=== PATIENT | female | born 1965 | race Caucasian/White ===

== ENCOUNTER 2017-11-21 06:00 | Inpatient (IN) | payer MEDICAID ==
[~2017-11-21] VITALS: Ht 165.1 cm; Wt 100.0 kg
[2017-11-21] VITALS (19 sets, daily range): BP systolic 93–129; BP diastolic 50–78
[~2017-11-21 06:00] MED LIST: ACET-812 PO; BUPR1FIL3 SL; DULO-31 PO; LAMO200T2 PO; LEVO175T2 PO; LEVO750T21 PO; METR500T PO; ONDA4TAB9 PO
[2017-11-21] MEDS ORDERED: Cefazolin 2GM/100ML NS IVPB IV ONE (07:00)
[2017-11-21] MEDS ORDERED: VANCOMYCIN INJ 1000 MG in NORMAL SALINE 250ml IV.SOLN IV ONE (07:00)
[2017-11-21] MEDS ORDERED: tranexamic acid inj. 1,000 MG in normal saline 100ml IV soln 90 ML IV ONE ×2 (07:00→08:00)
[2017-11-21] MEDS ORDERED: ringers solution, lacted 1,000 ML IV SCH ×2 (07:00→11:08)
[2017-11-21] MEDS ORDERED: ketorolac trometh. 30mg/ml inj. ONE (07:19)
[2017-11-21] MEDS ORDERED: ROPIVAcaine 0.5% (5mg/ml) 30ml vial ONE ×2 (07:19→08:15)
[2017-11-21 07:40] LABS: BASOPHILS % (AUTO) 0.5 % (0-1); EOSINOPHILS # (AUTO) 0.2 X10'3 (0-0.9); EOSINOPHILS % (AUTO) 1.8 % (0-6); HEMATOCRIT 39.5 % (35.0-45.0); HEMOGLOBIN 13.2 g/dl (12.0-16.0); LYMPHOCYTES % (AUTO) 30.3 % (21-51); MEAN CORPUSCULAR HEMOGLOBIN 28.9 PG (27.0-31.0); MEAN CORPUSCULAR HGB CONC 33.4 % (33.0-36.5); MEAN CORPUSCULAR VOLUME 86.4 FL (78-98); MEAN PLATELET VOLUME 8.1 FL (7.4-10.4); MONOCYTES # (AUTO) 0.8 X10'3 (0-0.9); NEUTROPHILS # (AUTO) 5.9 X10'3 (1.8-7.7); NEUTROPHILS % (AUTO) 59.4 % (42-75); PLATELET COUNT 371 X10'3 (140-440); RED BLOOD COUNT 4.57 X10'6 (4.20-5.60); RED CELL DISTRIBUTION WIDTH 14.3 % (11.5-14.5); WHITE BLOOD COUNT 9.9 X10'3 (4.5-11.0)
[2017-11-21 07:44] LABS: ALANINE AMINOTRANSFERASE 20 U/L (12-78); ALBUMIN 3.4 G/DL (3.4-5.0); ALBUMIN/GLOBULIN RATIO 0.9 (1.1-1.5); ALKALINE PHOSPHATASE 90 IU/L (46-116); ANION GAP 11 (8-16); ASPARTATE AMINO TRANSFERASE 16 U/L (10-37); BILIRUBIN,TOTAL 0.2 MG/DL (0.1-1.0); BLOOD UREA NITROGEN 24 MG/DL (7-18); BUN/CREATININE RATIO 18.9 (6.6-38.0); CALCIUM 8.9 MG/DL (8.5-10.1); CHLORIDE 104 MMOL/L (99-107); CREATININE 1.27 MG/DL (0.40-0.90); GLUCOSE 100 MG/DL (70-104); POTASSIUM 3.1 MMOL/L (3.5-5.1); SODIUM 144 MMOL/L (135-145); TOTAL CARBON DIOXIDE 29.4 MMOL/L (24-32); TOTAL PROTEIN 7.3 G/DL (6.4-8.2); eGFR 44 ML/MIN
[2017-11-21] MEDS ORDERED: desflurane 240ml liquid inh. IH ONE (07:54)
[2017-11-21] MEDS ORDERED: midazolam 2 mg/2 ml injection ONE (08:04)
[2017-11-21] MEDS ORDERED: fentaNYL /PF 50mcg/ml 5ml ampule ONE (08:04)
[2017-11-21] MEDS ORDERED: BUPIVAcaine/PF 7.5mg/ml (0.75%) 10ml vial ONE (08:16)
[2017-11-21] MEDS ORDERED: cloNIDine hcl/PF 100mcg/ml inj ONE (08:18)
[2017-11-21] MEDS ORDERED: propofol inj 20 ML IV ONE (08:35)
[2017-11-21] MEDS ORDERED: rocuronium 10mg/ml inj IV ONE (08:35)
[2017-11-21] MEDS ORDERED: LIDOcaine 2% (20mg/ml) 5ml vial ONE (08:35)
[2017-11-21 08:56] LABS: C-REACTIVE PROTEIN 2.44 MG/DL (0.0-0.5)
[2017-11-21] MEDS ORDERED: tobramycin sulfate 1.2gm vial TP ONE (09:18)
[2017-11-21] MEDS ORDERED: 0.9 % SODIUM CHLORIDE 10 ML VIAL ONE ×2 (09:45)
[2017-11-21] MEDS ORDERED: dexamethasone sod phosphate 4mg/ml inj. ONE (09:45)
[2017-11-21 09:47] LABS: APPEARANCE,SYNOVIAL FLUID CLOUDY; COLOR,SYNOVIAL FLUID OTHER; SYN RBC 15025 /CU MM (0); SYN WBC 3000 /CU MM (0-200)
[2017-11-21] MEDS ORDERED: morphine 10mg/ml inj. ONE (10:02)
[2017-11-21] MEDS ORDERED: ondansetron/PF 4mg/2ml inj ONE (10:18)
[2017-11-21] MEDS ORDERED: bisacodyl 10mg suppository rectal RC PRN (10:55)
[2017-11-21] MEDS ORDERED: oxyCODONE IR 5mg (immed. release) tablet PO PRN (10:55)
[2017-11-21] MEDS ORDERED: ondansetron 4mg rapidly disintigrating tab PO PRN (10:55)
[2017-11-21] MEDS ORDERED: diphenhydrAMINE 25mg capsule PO PRN ×2 (10:55)
[2017-11-21] MEDS ORDERED: HYDROmorphone inj. 0.5 MG/0.5 ML DISP.SYRIN IV PRN ×2 (10:55)
[2017-11-21] MEDS ORDERED: magnesium hydroxide 30ml (MOM) UD suspension PO PRN (10:55)
[2017-11-21] MEDS ORDERED: acetaminophen 325mg tablet PO PRN (10:55)
[2017-11-21] MEDS ORDERED: vancomycin 1,000mg inj TP ONE (11:00)
[2017-11-21] MEDS ORDERED: meperidine/PF 25mg/ml syringe ONE (11:08)
[2017-11-21] MEDS ORDERED: HYDROmorphone 1 mg/ml syringe IV PRN ×2 (11:10)
[2017-11-21] MEDS ORDERED: morphine 4 MG/ML inj SYRINge IV PRN ×2 (11:10)
[2017-11-21] MEDS ORDERED: meperidine/PF 25mg/ml syringe IV PRN ×3 (11:10)
[2017-11-21] MEDS ORDERED: proCHLORperazine 10 MG/2 ml inj IV PRN (11:10)
[2017-11-21] MEDS ORDERED: acetaminophen 1,000mg/100ml IV 100 ML IV PRN (11:10)
[2017-11-21] MEDS ORDERED: ketorolac trometh. 30mg/ml inj. IV ONE (11:10)
[2017-11-21] MEDS ORDERED: ondansetron/PF 4mg/2ml inj IV PRN (11:10)
[2017-11-21] MEDS ORDERED: ALBU18HF2 INH (11:35)
[2017-11-21] MEDS ORDERED: FAMO20TA8 PO (11:35)
[2017-11-21] MEDS ORDERED: GABA600T2 PO (11:35)
[2017-11-21] MEDS ORDERED: BECL10.62 INH (11:35)
[2017-11-21] MEDS ORDERED: gabapentin 300mg capsule PO SCH (13:00)
[2017-11-21] MEDS: acetaminophen 325mg tablet PO SCH ×2 (13:35→20:12)
[2017-11-21] MEDS: ketorolac tromethamine 15mg/ml inj. IV SCH ×2 (13:35→20:11)
[2017-11-21] MEDS: oxyCODONE IR 5mg (immed. release) tablet PO PRN ×2 (13:49→17:55)
[2017-11-21] MEDS ORDERED: tranexamic acid inj. 1,000 MG in normal saline 100ml IV soln 100 ML IV ONE (14:00)
[2017-11-21] MEDS: potassium cl 20mEq in 1/2 NS 1,000 ML IV SCH (15:44)
[2017-11-21] MEDS: ceFAZolin 1GM/D5W- ADD-VANTAGE 50 ML IV SCH (15:44)
[2017-11-21] MEDS ORDERED: potassium Cl 20 mEq SR tablet PO PRN (16:20)
[2017-11-21] MEDS ORDERED: potassium Cl 40MEQ/NS 500ml 500 ML IV PRN ×2 (16:20)
[2017-11-21] MEDS: potassium Cl 20 mEq SR tablet PO PRN ×2 (16:26→20:34)
[2017-11-21] MEDS: gabapentin 300mg capsule PO SCH (20:11)
[2017-11-21] MEDS: sennosides 8.6mg tablet PO SCH (20:11)
[2017-11-21] MEDS: vancomycin/NS 1 GM ADD-VANTAGE 250 ML IV SCH (20:12)
[2017-11-22] MEDS: ceFAZolin 1GM/D5W- ADD-VANTAGE 50 ML IV SCH (00:24)
[2017-11-22] MEDS: potassium Cl 20 mEq SR tablet PO PRN (00:24)
[2017-11-22 02:00] VITALS: BP 100/53
[2017-11-22] MEDS: ketorolac tromethamine 15mg/ml inj. IV SCH ×2 (02:03→08:25)
[2017-11-22] MEDS: acetaminophen 325mg tablet PO SCH ×4 (02:03→20:11)
[2017-11-22] MEDS: potassium cl 20mEq in 1/2 NS 1,000 ML IV SCH ×4 (02:04→18:51)
[2017-11-22] MEDS: oxyCODONE IR 5mg (immed. release) tablet PO PRN ×5 (04:24→22:12)
[2017-11-22 07:25] LABS: BASOPHILS % (AUTO) 0.1 % (0-1); EOSINOPHILS % (AUTO) 0 % (0-6); HEMATOCRIT 33.4 % (35.0-45.0); LYMPHOCYTES # (AUTO) 1.5 X10'3 (1.1-4.8); LYMPHOCYTES % (AUTO) 8.4 % (21-51); MEAN CORPUSCULAR HEMOGLOBIN 28.8 PG (27.0-31.0); MEAN CORPUSCULAR HGB CONC 32.9 % (33.0-36.5); MEAN CORPUSCULAR VOLUME 87.6 FL (78-98); MEAN PLATELET VOLUME 8.8 FL (7.4-10.4); MONOCYTES # (AUTO) 0.9 X10'3 (0-0.9); NEUTROPHILS # (AUTO) 15.5 X10'3 (1.8-7.7); NEUTROPHILS % (AUTO) 86.5 % (42-75); PLATELET COUNT 320 X10'3 (140-440); RED BLOOD COUNT 3.82 X10'6 (4.20-5.60); RED CELL DISTRIBUTION WIDTH 14.2 % (11.5-14.5)
[2017-11-22 07:42] LABS: ANION GAP 10 (8-16); CHLORIDE 103 MMOL/L (99-107); POTASSIUM 4.1 MMOL/L (3.5-5.1); SODIUM 137 MMOL/L (135-145)
[2017-11-22] MEDS ORDERED: non-formulary drug (Buprenorphine Hcl/Naloxone Hcl (Suboxone 8 Mg-2 Mg Sl Film) 1 STRIP) SL SCH (08:00)
[2017-11-22] MEDS ORDERED: LAMOTRIGINE PO SCH (08:00)
[2017-11-22] MEDS ORDERED: buprenorphine/naloxone 8MG-2MG SUBlingual film SL SCH (08:00)
[2017-11-22] MEDS ORDERED: levoTHYROXINE 88mcg tablet PO SCH (08:00)
[2017-11-22] MEDS ORDERED: lamoTRIgine 100mg tablet PO SCH (08:00)
[2017-11-22] MEDS ORDERED: duloxetine 30mg CAPSULE.DR PO SCH (08:00)
[2017-11-22] MEDS: HYDROchlorothiazide 25mg tablet PO SCH (08:24)
[2017-11-22] MEDS: pantoprazole 40mg Tablet.DR PO SCH (08:24)
[2017-11-22] MEDS: gabapentin 300mg capsule PO SCH ×2 (08:24→20:11)
[2017-11-22] MEDS: aspirin 325mg tablet PO SCH (08:24)
[2017-11-22] MEDS: vancomycin/NS 1 GM ADD-VANTAGE 250 ML IV SCH (08:25)
[2017-11-22 10:00] VITALS: BP 103/61
[2017-11-22] MEDS ORDERED: LORazepam 2 mg/ml vial IV ONE (10:55)
[2017-11-22] MEDS: varenicline tartrate 0.5mg tablet PO SCH ×2 (11:57→20:10)
[2017-11-22 18:00] VITALS: BP 142/67
[2017-11-22] MEDS: lactobacillus rhamnosus 10,000 MMU CELLS/CAPSULE PO SCH (20:10)
[2017-11-22] MEDS: celeCOXIB 100mg capsule PO SCH (20:10)
[2017-11-22] MEDS: sennosides 8.6mg tablet PO SCH (20:11)
[2017-11-22] MEDS: vancomycin inj 1,250 MG in normal saline 250ml IV soln 250 ML IV SCH (20:11)
[2017-11-22 22:00] VITALS: BP 112/55
[2017-11-23] MEDS: acetaminophen 325mg tablet PO SCH ×2 (02:49→06:56)
[2017-11-23] MEDS: oxyCODONE IR 5mg (immed. release) tablet PO PRN ×5 (02:50→19:56)
[2017-11-23] MEDS: potassium cl 20mEq in 1/2 NS 1,000 ML IV SCH (02:51)
[2017-11-23 05:52] LABS: BASOPHILS # (AUTO) 0.1 X10'3 (0-0.2); EOSINOPHILS % (AUTO) 0.4 % (0-6); HEMATOCRIT 34.5 % (35.0-45.0); HEMOGLOBIN 11.4 g/dl (12.0-16.0); LYMPHOCYTES # (AUTO) 2.6 X10'3 (1.1-4.8); MEAN CORPUSCULAR HEMOGLOBIN 28.9 PG (27.0-31.0); MEAN CORPUSCULAR HGB CONC 33.2 % (33.0-36.5); MEAN CORPUSCULAR VOLUME 87.3 FL (78-98); MEAN PLATELET VOLUME 8.4 FL (7.4-10.4); MONOCYTES # (AUTO) 1.2 X10'3 (0-0.9); MONOCYTES % (AUTO) 9.4 % (2-12); NEUTROPHILS # (AUTO) 9.2 X10'3 (1.8-7.7); NEUTROPHILS % (AUTO) 69.2 % (42-75); PLATELET COUNT 296 X10'3 (140-440); RED BLOOD COUNT 3.95 X10'6 (4.20-5.60); RED CELL DISTRIBUTION WIDTH 14.3 % (11.5-14.5); WHITE BLOOD COUNT 13.2 X10'3 (4.5-11.0)
[2017-11-23 06:00] VITALS: BP 117/70
[2017-11-23] MEDS: varenicline tartrate 0.5mg tablet PO SCH ×2 (06:55→19:56)
[2017-11-23] MEDS: aspirin 325mg tablet PO SCH (06:55)
[2017-11-23] MEDS: gabapentin 300mg capsule PO SCH ×2 (06:56→19:56)
[2017-11-23] MEDS: pantoprazole 40mg Tablet.DR PO SCH (06:57)
[2017-11-23] MEDS: HYDROchlorothiazide 25mg tablet PO SCH (06:57)
[2017-11-23] MEDS: lactobacillus rhamnosus 10,000 MMU CELLS/CAPSULE PO SCH ×2 (06:57→19:56)
[2017-11-23] MEDS: celeCOXIB 100mg capsule PO SCH ×2 (06:57→19:56)
[2017-11-23] MEDS: ondansetron/PF 4mg/2ml inj IV PRN ×2 (06:58→13:49)
[2017-11-23] MEDS: vancomycin inj 1,250 MG in normal saline 250ml IV soln 250 ML IV SCH ×2 (07:00→19:56)
[2017-11-23 10:00] VITALS: BP 114/66
[2017-11-23] MEDS ORDERED: acetaminophen 325mg tablet PO PRN (10:55)
[2017-11-23 18:00] VITALS: BP 109/73
[2017-11-23] MEDS: sennosides 8.6mg tablet PO SCH (19:56)
[2017-11-24] MEDS: oxyCODONE IR 5mg (immed. release) tablet PO PRN ×2 (02:55→07:46)
[2017-11-24 06:00] VITALS: BP 101/60
[2017-11-24] MEDS ORDERED: VANCOMYCIN LEVEL IV ONE (07:30)
[2017-11-24] MEDS: varenicline tartrate 0.5mg tablet PO SCH (07:45)
[2017-11-24] MEDS: pantoprazole 40mg Tablet.DR PO SCH (07:45)
[2017-11-24] MEDS: lactobacillus rhamnosus 10,000 MMU CELLS/CAPSULE PO SCH (07:45)
[2017-11-24] MEDS: celeCOXIB 100mg capsule PO SCH (07:45)
[2017-11-24] MEDS: gabapentin 300mg capsule PO SCH (07:45)
[2017-11-24] MEDS: aspirin 325mg tablet PO SCH (07:45)
[2017-11-24] MEDS: HYDROchlorothiazide 25mg tablet PO SCH (07:45)
[2017-11-24] MEDS: vancomycin inj 1,250 MG in normal saline 250ml IV soln 250 ML IV SCH (07:58)
[2017-11-24 08:53] LABS: ANION GAP 9 (8-16); BLOOD UREA NITROGEN 10 MG/DL (7-18); BUN/CREATININE RATIO 9.4 (6.6-38.0); CALCIUM 9.3 MG/DL (8.5-10.1); CHLORIDE 98 MMOL/L (99-107); CREATININE 1.06 MG/DL (0.40-0.90); GLUCOSE 109 MG/DL (70-104); POTASSIUM 3.5 MMOL/L (3.5-5.1); SODIUM 134 MMOL/L (135-145); TOTAL CARBON DIOXIDE 27.3 MMOL/L (24-32); VANCOMYCIN,TROUGH 14.5 UG/ML (6.0-14.0); eGFR 55 ML/MIN
[2017-11-24 09:19] LABS: BASOPHILS # (AUTO) 0.2 X10'3 (0-0.2); BASOPHILS % (AUTO) 0.9 % (0-1); EOSINOPHILS # (AUTO) 0.1 X10'3 (0-0.9); EOSINOPHILS % (AUTO) 0.3 % (0-6); HEMATOCRIT 35.2 % (35.0-45.0); HEMOGLOBIN 11.6 g/dl (12.0-16.0); LYMPHOCYTES # (AUTO) 2.5 X10'3 (1.1-4.8); MEAN CORPUSCULAR HGB CONC 33.1 % (33.0-36.5); MEAN CORPUSCULAR VOLUME 87.6 FL (78-98); MEAN PLATELET VOLUME 8.9 FL (7.4-10.4); MONOCYTES # (AUTO) 2.4 X10'3 (0-0.9); MONOCYTES % (AUTO) 12.6 % (2-12); NEUTROPHILS # (AUTO) 13.9 X10'3 (1.8-7.7); NEUTROPHILS % (AUTO) 73.2 % (42-75); PLATELET COUNT 371 X10'3 (140-440); RED BLOOD COUNT 4.02 X10'6 (4.20-5.60); RED CELL DISTRIBUTION WIDTH 13.8 % (11.5-14.5); WHITE BLOOD COUNT 19.1 X10'3 (4.5-11.0)
[2017-11-24 09:49] LABS: TOTAL CELLS COUNTED 100
[2017-11-24 09:50] LABS: PLATELET ESTIMATE NORMAL
[2017-11-24 10:00] VITALS: BP 104/55
== END 2017-11-24 12:35 | disposition home health service (06) | DRG 320 ==
LOC: ORTHO 4S 06:00
PROVIDERS: ADMIT Orthopaedic Surgery; ATTEND Orthopaedic Surgery
PROC: 0SHC08Z Insertion of Spacer into Right Knee Joint, Open Approach (ICD-10-PCS; 2017-11-21)
PROC: 3E0T3BZ Introduction of Anesthetic Agent into Peripheral Nerves and Plexi, Percutaneous Approach (ICD-10-PCS; 2017-11-21)
PROC: 0SPC0JZ Removal of Synthetic Substitute from Right Knee Joint, Open Approach (ICD-10-PCS; principal; 2017-11-21 07:54)
PROC: 02HV33Z Insertion of Infusion Device into Superior Vena Cava, Percutaneous Approach (ICD-10-PCS; 2017-11-23)
PROC: B548ZZA Ultrasonography of Superior Vena Cava, Guidance (ICD-10-PCS; 2017-11-23)
DX: T84.53XA Infection and inflammatory reaction due to internal right knee prosthesis, initial encounter (principal); E03.9 Hypothyroidism, unspecified; G89.29 Other chronic pain; F17.210 Nicotine dependence, cigarettes, uncomplicated; Y83.1 Surgical operation with implant of artificial internal device as the cause of abnormal reaction of the patient, or of later complication, without mention of misadventure at the time of the procedure; Z90.710 Acquired absence of both cervix and uterus; Z79.899 Other long term (current) drug therapy; Z79.01 Long term (current) use of anticoagulants; Z88.6 Allergy status to analgesic agent; Z88.8 Allergy status to other drugs, medicaments and biological substances; Z90.49 Acquired absence of other specified parts of digestive tract; Y92.89 Other specified places as the place of occurrence of the external cause
CPT/HCPCS: 36415; 36569; 76937; 80048; 80051; 80053; 80202; 84132; 85025; 85651; 86140; 87070; 87075; 87176; 89051; 93005; 97110; 97116; 97162; 97530; A6449; A7000; C1713; C1758; J0131; J0690; J0735; J1100; J1170; J1885; J2001; J2060; J2175; J2250; J2270; J2405; J2704; J2795; J3010; J3260; J3370; J3490; J7030; J7120; L1832

== ENCOUNTER 2017-12-04 09:46 | Day surgery (SDC) | payer MEDICAID ==
[~2017-12-04 09:46] MED LIST changes: -ACET-812 PO; +ALBU18HF2 INH; +BECL10.62 INH; -BUPR1FIL3 SL; -DULO-31 PO; +FAMO20TA8 PO; +GABA600T2 PO; -LAMO200T2 PO; -LEVO175T2 PO; -LEVO750T21 PO; -METR500T PO; -ONDA4TAB9 PO
[2017-12-04] MEDS ORDERED: LIDOcaine 2% 5ml jelly ONE (10:10)
[2017-12-04] MEDS ORDERED: VANC1VIA21 IV (15:03)
== END 2017-12-04 10:37 | disposition home or self-care (01) ==
LOC: WOUND CARE 09:46
PROVIDERS: ATTEND Surgery
DX: T81.31XD Disruption of external operation (surgical) wound, not elsewhere classified, subsequent encounter (principal); L97.322 Non-pressure chronic ulcer of left ankle with fat layer exposed; E03.9 Hypothyroidism, unspecified; F17.210 Nicotine dependence, cigarettes, uncomplicated; Z79.899 Other long term (current) drug therapy; Z90.710 Acquired absence of both cervix and uterus; Z79.01 Long term (current) use of anticoagulants; Y83.8 Other surgical procedures as the cause of abnormal reaction of the patient, or of later complication, without mention of misadventure at the time of the procedure
CPT/HCPCS: 11042; A6021; A6206; A6212

== ENCOUNTER 2017-12-11 10:34 | Day surgery (SDC) | payer MEDICAID ==
[~2017-12-11 10:34] MED LIST changes: +VANC1VIA21 IV
[2017-12-11] MEDS ORDERED: LIDOcaine 2% 5ml jelly MM ONE (15:05)
[2017-12-14] MEDS ORDERED: SERT50TA10 PO (08:53)
[2017-12-14] MEDS ORDERED: OXYC10TA47 PO (08:53)
[2017-12-14] MEDS ORDERED: METH5TAB PO (08:53)
[2017-12-14] MEDS ORDERED: HYDR25TA4 PO (08:53)
[2017-12-14] MEDS ORDERED: METH-603 PO (09:52)
== END 2017-12-11 11:23 | disposition home or self-care (01) ==
LOC: WOUND CARE 10:34
PROVIDERS: ATTEND Surgery
DX: T84.53XD Infection and inflammatory reaction due to internal right knee prosthesis, subsequent encounter (principal); T81.31XD Disruption of external operation (surgical) wound, not elsewhere classified, subsequent encounter; L97.322 Non-pressure chronic ulcer of left ankle with fat layer exposed; E03.9 Hypothyroidism, unspecified; F17.210 Nicotine dependence, cigarettes, uncomplicated; Z79.899 Other long term (current) drug therapy; Z90.710 Acquired absence of both cervix and uterus; Z79.01 Long term (current) use of anticoagulants; Y83.8 Other surgical procedures as the cause of abnormal reaction of the patient, or of later complication, without mention of misadventure at the time of the procedure
CPT/HCPCS: 11042; A6021; A6206; A6212

== ENCOUNTER 2017-12-15 05:22 | Inpatient (IN) | payer MEDICAID ==
[2017-12-15] VITALS (18 sets, daily range): BP systolic 86–123; BP diastolic 47–71
[~2017-12-15] VITALS: Ht 165.1 cm; Wt 101.2 kg
[~2017-12-15 05:22] MED LIST changes: +HYDR25TA4 PO; +METH-603 PO; +OXYC10TA47 PO; +SERT50TA10 PO; +ringers solution, lacted 1,000 ML IV SCH
[2017-12-15] MEDS ORDERED: famotidine 20mg tablet PO ONE (05:30)
[2017-12-15] MEDS ORDERED: ceFAZolin inj. 2,000 MG in dextrose 5%-water 50 ML IV ONE (06:25)
[2017-12-15 06:26] LABS: BASOPHILS # (AUTO) 0.1 X10'3 (0-0.2); BASOPHILS % (AUTO) 1.2 % (0-1); EOSINOPHILS # (AUTO) 0.6 X10'3 (0-0.9); EOSINOPHILS % (AUTO) 14.4 % (0-6); HEMATOCRIT 32.7 % (35.0-45.0); HEMOGLOBIN 10.9 g/dl (12.0-16.0); LYMPHOCYTES # (AUTO) 1.6 X10'3 (1.1-4.8); LYMPHOCYTES % (AUTO) 36.3 % (21-51); MEAN CORPUSCULAR HEMOGLOBIN 28.7 PG (27.0-31.0); MEAN CORPUSCULAR HGB CONC 33.3 % (33.0-36.5); MEAN CORPUSCULAR VOLUME 86.2 FL (78-98); MEAN PLATELET VOLUME 7.4 FL (7.4-10.4); MONOCYTES # (AUTO) 0.7 X10'3 (0-0.9); MONOCYTES % (AUTO) 17.4 % (2-12); NEUTROPHILS # (AUTO) 1.3 X10'3 (1.8-7.7); NEUTROPHILS % (AUTO) 30.7 % (42-75); PLATELET COUNT 388 X10'3 (140-440); RED BLOOD COUNT 3.79 X10'6 (4.20-5.60); RED CELL DISTRIBUTION WIDTH 15.2 % (11.5-14.5); WHITE BLOOD COUNT 4.3 X10'3 (4.5-11.0)
[2017-12-15] MEDS ORDERED: vancomycin inj 1,500 MG in normal saline 300ml IV soln IV ONE (06:30)
[2017-12-15] MEDS ORDERED: Cefazolin 2GM/50ML dext iso,osmotic IVPB IV ONE (06:30)
[2017-12-15] MEDS ORDERED: ceFAZolin inj. 2,000 MG in dextrose 5%-water 100 ML IV ONE (06:30)
[2017-12-15 06:39] LABS: ALANINE AMINOTRANSFERASE 18 U/L (12-78); ALBUMIN 3.4 G/DL (3.4-5.0); ALKALINE PHOSPHATASE 92 IU/L (46-116); ANION GAP 13 (8-16); ASPARTATE AMINO TRANSFERASE 20 U/L (10-37); BILIRUBIN,TOTAL 0.3 MG/DL (0.1-1.0); BLOOD UREA NITROGEN 6 MG/DL (7-18); CALCIUM 8.9 MG/DL (8.5-10.1); CHLORIDE 103 MMOL/L (99-107); GLUCOSE 88 MG/DL (70-104); POTASSIUM 3.4 MMOL/L (3.5-5.1); SODIUM 140 MMOL/L (135-145); TOTAL CARBON DIOXIDE 24.5 MMOL/L (24-32); TOTAL PROTEIN 6.9 G/DL (6.4-8.2); eGFR 47 ML/MIN
[2017-12-15] MEDS ORDERED: vancomycin 1,000mg inj ONE (06:44)
[2017-12-15] MEDS ORDERED: ketorolac trometh. 30mg/ml inj. ONE (06:44)
[2017-12-15] MEDS ORDERED: ROPIVAcaine 0.5% (5mg/ml) 30ml vial ONE ×2 (06:45→09:01)
[2017-12-15] MEDS ORDERED: MIDAZolam 1mg/ml 10ml vial ONE (08:05)
[2017-12-15] MEDS ORDERED: fentaNYL/PF 50MCG/1 ML 2ML syringe ONE ×2 (08:05→08:34)
[2017-12-15] MEDS ORDERED: LIDOcaine 1%/PF 5ML 10 MG/ML VIAL ONE (08:22)
[2017-12-15] MEDS ORDERED: propofol inj 20 ML IV ONE (08:22)
[2017-12-15] MEDS ORDERED: BUPIVAcaine/PF 7.5mg/ml (0.75%) 10ml vial IJ ONE (08:40)
[2017-12-15] MEDS ORDERED: Dextrose 10%-water IV solution 1,000 ML IV ONE (08:40)
[2017-12-15] MEDS ORDERED: cloNIDine hcl/PF 100mcg/ml inj ONE (09:00)
[2017-12-15] MEDS ORDERED: dexamethasone sod phosphate 4mg/ml inj. ONE (09:01)
[2017-12-15] MEDS ORDERED: ringers solution, lacted 1,000 ML IV SCH (09:04)
[2017-12-15] MEDS ORDERED: meperidine/PF 25mg/ml syringe IV PRN ×3 (09:05)
[2017-12-15] MEDS ORDERED: morphine 4 MG/ML inj SYRINge IV PRN ×2 (09:05)
[2017-12-15] MEDS ORDERED: ondansetron/PF 4mg/2ml inj IV PRN ×2 (09:05→09:20)
[2017-12-15] MEDS ORDERED: proCHLORperazine 10 MG/2 ml inj IV PRN (09:05)
[2017-12-15] MEDS ORDERED: acetaminophen 325mg tablet PO PRN (09:20)
[2017-12-15] MEDS ORDERED: bisacodyl 10mg suppository rectal RC PRN (09:20)
[2017-12-15] MEDS ORDERED: OXYCODONE HCL 10 MG PO PRN (09:20)
[2017-12-15] MEDS ORDERED: HYDROmorphone inj. 0.5 MG/0.5 ML DISP.SYRIN IV PRN ×2 (09:20)
[2017-12-15] MEDS ORDERED: diphenhydrAMINE 25mg capsule PO PRN ×2 (09:20)
[2017-12-15] MEDS ORDERED: albuterol 2.5 MG/3 ML nebule NEB PRN (09:20)
[2017-12-15] MEDS ORDERED: magnesium hydroxide 30ml (MOM) UD suspension PO PRN (09:20)
[2017-12-15] MEDS: gabapentin 300mg capsule PO SCH ×2 (14:59→20:59)
[2017-12-15] MEDS: ketorolac tromethamine 15mg/ml inj. IV SCH ×2 (15:00→21:03)
[2017-12-15] MEDS: acetaminophen 325mg tablet PO SCH ×2 (15:00→21:00)
[2017-12-15] MEDS: oxyCODONE IR 5mg (immed. release) tablet PO PRN (15:12)
[2017-12-15] MEDS: ceFAZolin 1GM/D5W- ADD-VANTAGE 50 ML IV SCH (16:44)
[2017-12-15] MEDS: potassium cl 20mEq in 1/2 NS 1,000 ML IV SCH ×2 (16:50→16:51)
[2017-12-15] MEDS ORDERED: budesonide 0.5mg/2ml UD nebule IH PRN (20:00)
[2017-12-15] MEDS: famotidine 20mg tablet PO SCH (21:00)
[2017-12-15] MEDS: lactobacillus rhamnosus 10,000 MMU CELLS/CAPSULE PO SCH (21:01)
[2017-12-15] MEDS: sennosides 8.6mg tablet PO SCH (21:01)
[2017-12-15] MEDS: methadone 10mg tablet PO SCH (21:01)
[2017-12-16] MEDS: ceFAZolin 1GM/D5W- ADD-VANTAGE 50 ML IV SCH (00:21)
[2017-12-16] MEDS: potassium cl 20mEq in 1/2 NS 1,000 ML IV SCH ×4 (01:55→22:37)
[2017-12-16] MEDS: ketorolac tromethamine 15mg/ml inj. IV SCH ×2 (01:55→08:35)
[2017-12-16] MEDS: acetaminophen 325mg tablet PO SCH ×4 (01:58→21:06)
[2017-12-16 03:00] VITALS: BP 103/57
[2017-12-16] MEDS: oxyCODONE IR 5mg (immed. release) tablet PO PRN ×5 (05:35→22:33)
[2017-12-16 06:00] VITALS: BP 112/50
[2017-12-16] MEDS ORDERED: vancomycin 1,000mg inj IV SCH (08:00)
[2017-12-16] MEDS: methadone 10mg tablet PO SCH ×2 (08:29→21:05)
[2017-12-16] MEDS: famotidine 20mg tablet PO SCH ×2 (08:30→21:05)
[2017-12-16] MEDS: sertraline 50mg tablet PO SCH (08:30)
[2017-12-16] MEDS: lactobacillus rhamnosus 10,000 MMU CELLS/CAPSULE PO SCH ×2 (08:30→21:06)
[2017-12-16] MEDS: gabapentin 300mg capsule PO SCH ×3 (08:30→21:06)
[2017-12-16] MEDS: aspirin 325mg tablet PO SCH (08:31)
[2017-12-16] MEDS: HYDROchlorothiazide 25mg tablet PO SCH (08:31)
[2017-12-16 10:00] VITALS: BP 107/62
[2017-12-16 14:00] VITALS: BP 99/48
[2017-12-16] MEDS ORDERED: fluconazole 150mg tablet PO ONE (16:50)
[2017-12-16 18:00] VITALS: BP 95/47
[2017-12-16] MEDS: celeCOXIB 100mg capsule PO SCH (21:05)
[2017-12-16] MEDS: sennosides 8.6mg tablet PO SCH (21:06)
[2017-12-16 22:00] VITALS: BP 111/58
[2017-12-17] MEDS: acetaminophen 325mg tablet PO SCH ×3 (02:00→07:17)
[2017-12-17] MEDS: oxyCODONE IR 5mg (immed. release) tablet PO PRN ×2 (05:56→09:27)
[2017-12-17 06:00] VITALS: BP 107/58
[2017-12-17] MEDS ORDERED: VANCOMYCIN LEVEL IV ONE (06:30)
[2017-12-17] MEDS: lactobacillus rhamnosus 10,000 MMU CELLS/CAPSULE PO SCH (07:16)
[2017-12-17] MEDS: celeCOXIB 100mg capsule PO SCH (07:17)
[2017-12-17] MEDS: methadone 10mg tablet PO SCH (07:17)
[2017-12-17] MEDS: sertraline 50mg tablet PO SCH (07:17)
[2017-12-17] MEDS: famotidine 20mg tablet PO SCH (07:18)
[2017-12-17] MEDS: gabapentin 300mg capsule PO SCH (07:18)
[2017-12-17] MEDS: HYDROchlorothiazide 25mg tablet PO SCH (07:24)
[2017-12-17] MEDS ORDERED: ASPI-1 PO (08:12)
[2017-12-17] MEDS: aspirin 325mg tablet PO SCH (09:12)
[2017-12-17 09:18] LABS: VANCOMYCIN,TROUGH 59.3 UG/ML (6.0-14.0)
[2017-12-17] MEDS ORDERED: acetaminophen 325mg tablet PO PRN (09:20)
[2017-12-17 09:49] LABS: CREATININE 1.11 MG/DL (0.40-0.90); eGFR 52 ML/MIN
[2017-12-17 10:00] VITALS: BP 0/54
[2017-12-18] MEDS ORDERED: VANCOMYCIN LEVEL IV ONE (03:00)
== END 2017-12-17 12:55 | disposition home health service (06) | DRG 317 ==
LOC: PAS IN 05:22 → EDSTATUS 08:00 → ORTHO 4S 10:28
PROVIDERS: ADMIT Orthopaedic Surgery; ATTEND Orthopaedic Surgery
PROC: 3E0T3BZ Introduction of Anesthetic Agent into Peripheral Nerves and Plexi, Percutaneous Approach (ICD-10-PCS; 2017-12-15)
PROC: 0KBS0ZZ Excision of Right Lower Leg Muscle, Open Approach (ICD-10-PCS; principal; 2017-12-15 08:00)
PROC: 02HV33Z Insertion of Infusion Device into Superior Vena Cava, Percutaneous Approach (ICD-10-PCS; 2017-12-17)
PROC: B548ZZA Ultrasonography of Superior Vena Cava, Guidance (ICD-10-PCS; 2017-12-17)
DX: T84.53XA Infection and inflammatory reaction due to internal right knee prosthesis, initial encounter (principal); T81.31XA Disruption of external operation (surgical) wound, not elsewhere classified, initial encounter; I10 Essential (primary) hypertension; J44.9 Chronic obstructive pulmonary disease, unspecified; K21.9 Gastro-esophageal reflux disease without esophagitis; Z96.651 Presence of right artificial knee joint; E66.9 Obesity, unspecified; Y79.2 Prosthetic and other implants, materials and accessory orthopedic devices associated with adverse incidents; E03.9 Hypothyroidism, unspecified; E87.6 Hypokalemia; D64.9 Anemia, unspecified; F32.9 Major depressive disorder, single episode, unspecified; F17.210 Nicotine dependence, cigarettes, uncomplicated; F41.9 Anxiety disorder, unspecified; G89.29 Other chronic pain; M54.9 Dorsalgia, unspecified; Z68.37 Body mass index [BMI] 37.0-37.9, adult; Z88.5 Allergy status to narcotic agent; Z88.8 Allergy status to other drugs, medicaments and biological substances; Y92.89 Other specified places as the place of occurrence of the external cause; Z79.899 Other long term (current) drug therapy
CPT/HCPCS: 36415; 36569; 76937; 80053; 80202; 82565; 85025; 87070; 87075; 87176; 94760; 97116; 97162; 97530; A6255; A6257; A6449; A7000; A9272; C1758; J0690; J0735; J1100; J1885; J2001; J2175; J2250; J2405; J2704; J2795; J3010; J3370; J3490; J7030; J7060; J7120; L1832

== ENCOUNTER 2019-08-08 10:46 | Emergency (ER) | payer MEDICAID ==
[~2019-08-08] VITALS: Ht 162.6 cm; Wt 95.9 kg
[~2019-08-08 10:46] MED LIST changes: +ASPI-1 PO; +GABA600T13 PO; -GABA600T2 PO; -ringers solution, lacted 1,000 ML IV SCH
[2019-08-08 11:08] VITALS: BP 144/79
== END 2019-08-08 13:45 | disposition home or self-care (01) ==
LOC: ER 10:47
DX: G89.29 Other chronic pain (principal); Z76.0 Encounter for issue of repeat prescription; Z90.49 Acquired absence of other specified parts of digestive tract; Z98.890 Other specified postprocedural states; Z90.710 Acquired absence of both cervix and uterus; Z90.722 Acquired absence of ovaries, bilateral; Z87.891 Personal history of nicotine dependence; Z88.5 Allergy status to narcotic agent; Z88.8 Allergy status to other drugs, medicaments and biological substances; Z79.899 Other long term (current) drug therapy; Z79.82 Long term (current) use of aspirin
CPT/HCPCS: 99281

== ENCOUNTER 2019-12-24 19:15 | Emergency (ER) | payer MEDICAID ==
[~2019-12-24] VITALS: Ht 162.6 cm; Wt 93.6 kg
[2019-12-24 21:02] VITALS: BP 108/71
== END 2019-12-24 21:04 | disposition home or self-care (01) ==
LOC: ER 19:17
DX: S80.01XA Contusion of right knee, initial encounter (principal); S90.31XA Contusion of right foot, initial encounter; M79.671 Pain in right foot; F17.200 Nicotine dependence, unspecified, uncomplicated; G89.29 Other chronic pain; Z90.49 Acquired absence of other specified parts of digestive tract; Z90.710 Acquired absence of both cervix and uterus; Z98.890 Other specified postprocedural states; Z88.5 Allergy status to narcotic agent; Z88.8 Allergy status to other drugs, medicaments and biological substances; Z79.82 Long term (current) use of aspirin; Z79.2 Long term (current) use of antibiotics; Z79.899 Other long term (current) drug therapy; W01.0XXA Fall on same level from slipping, tripping and stumbling without subsequent striking against object, initial encounter; Y93.89 Activity, other specified; Y92.89 Other specified places as the place of occurrence of the external cause; Y99.8 Other external cause status
CPT/HCPCS: 73560; 73630; 99284

== ENCOUNTER 2021-01-28 16:08 | Emergency (ER) | payer MEDICAID ==
[~2021-01-28] VITALS: Ht 162.6 cm; Wt 97.7 kg
[~2021-01-28 16:08] MED LIST changes: +SERT-433 PO; -SERT50TA10 PO; -VANC1VIA21 IV; +VANC1VIA35 IV
[2021-01-28 16:29] VITALS: BP 152/115
[2021-01-28] MEDS ORDERED: aspirin 325mg tablet PO ONE (16:35)
[2021-01-28 17:12] LABS: BASOPHILS # (AUTO) 0.1 X10'3 (0-0.2); BASOPHILS % (AUTO) 1.1 % (0-1); EOSINOPHILS # (AUTO) 0.2 X10'3 (0-0.9); EOSINOPHILS % (AUTO) 1.7 % (0-6); HEMATOCRIT 42.9 % (35.0-45.0); HEMOGLOBIN 14.6 g/dl (12.0-16.0); LYMPHOCYTES # (AUTO) 1.9 X10'3 (1.1-4.8); MEAN CORPUSCULAR HEMOGLOBIN 31.7 PG (27.0-31.0); MEAN CORPUSCULAR HGB CONC 34.1 g/dL (33.0-36.5); MEAN CORPUSCULAR VOLUME 93.1 FL (78-98); MEAN PLATELET VOLUME 7.8 FL (7.4-10.4); MONOCYTES # (AUTO) 0.6 X10'3 (0-0.9); MONOCYTES % (AUTO) 6.2 % (2-12); NEUTROPHILS # (AUTO) 7.1 X10'3 (1.8-7.7); PLATELET COUNT 302 X10'3 (140-440); RED BLOOD COUNT 4.61 X10'6 (4.20-5.60); RED CELL DISTRIBUTION WIDTH 15.1 % (11.5-14.5); WHITE BLOOD COUNT 9.9 X10'3 (4.5-11.0)
[2021-01-28 17:28] LABS: ALANINE AMINOTRANSFERASE 25 U/L (12-78); ALBUMIN 3.8 G/DL (3.4-5.0); ALBUMIN/GLOBULIN RATIO 0.9 (1.1-1.5); ALKALINE PHOSPHATASE 123 IU/L (46-116); ANION GAP 12 (8-16); ASPARTATE AMINO TRANSFERASE 25 U/L (10-37); BILIRUBIN,TOTAL 0.2 MG/DL (0.1-1.0); BLOOD UREA NITROGEN 15 MG/DL (7-18); BUN/CREATININE RATIO 16.3 (6.6-38.0); CALCIUM 8.5 MG/DL (8.5-10.1); CHLORIDE 107 MMOL/L (99-107); CREATININE 0.92 MG/DL (0.40-0.90); GLUCOSE 110 MG/DL (70-104); SODIUM 140 MMOL/L (135-145); TOTAL CARBON DIOXIDE 20.8 MMOL/L (24-32); TOTAL PROTEIN 7.9 G/DL (6.4-8.2); eGFR 64 ML/MIN
[2021-01-28] MEDS ORDERED: LORazepam 1 MG tablet PO ONE (18:15)
[2021-01-28] MEDS ORDERED: AZIT250T27 PO (19:39)
[2021-01-28] MEDS ORDERED: PRED20TA PO (19:39)
== END 2021-01-28 19:45 | disposition left against medical advice (07) ==
LOC: ER 16:09
DX: R07.9 Chest pain, unspecified (principal); Z20.822 Contact with and (suspected) exposure to COVID-19; R51.9 Headache, unspecified; R20.0 Anesthesia of skin
CPT/HCPCS: 36415; 71045; 80053; 83735; 84484; 85025; 87635; 93005; 99285; C9803

== ENCOUNTER 2021-07-01 03:12 | Emergency (ER) | payer MEDICAID ==
[~2021-07-01] VITALS: Ht 160 cm; Wt 102.7 kg
[~2021-07-01 03:12] MED LIST changes: -VANC1VIA35 IV; +VANC1VIA38 IV
[2021-07-01 03:23] VITALS: BP 127/82
== END 2021-07-01 05:39 | disposition left against medical advice (07) ==
LOC: ER 05:35
DX: S51.012A Laceration without foreign body of left elbow, initial encounter (principal); Z53.21 Procedure and treatment not carried out due to patient leaving prior to being seen by health care provider; X58.XXXA Exposure to other specified factors, initial encounter; Y93.9 Activity, unspecified; Y92.9 Unspecified place or not applicable; Y99.9 Unspecified external cause status

== ENCOUNTER 2021-11-07 13:56 | Emergency (ER) | payer MEDICAID ==
[~2021-11-07] VITALS: Ht 162.6 cm; Wt 96.8 kg
[2021-11-07] MEDS ORDERED: ketorolac trometh. 30mg/ml inj. IM ONE (15:05)
[2021-11-07] MEDS ORDERED: orphenadrine citrate 60mg/2ml inj. IM ONE (15:05)
[2021-11-07] MEDS ORDERED: IBUP-860 PO (16:37)
[2021-11-07 16:51] VITALS: BP 140/83
== END 2021-11-07 16:56 | disposition home or self-care (01) ==
LOC: ER 13:57
DX: S80.11XA Contusion of right lower leg, initial encounter (principal); G89.29 Other chronic pain; Z88.1 Allergy status to other antibiotic agents; Z88.5 Allergy status to narcotic agent; Z79.899 Other long term (current) drug therapy; W18.39XA Other fall on same level, initial encounter; Y93.89 Activity, other specified; Y92.89 Other specified places as the place of occurrence of the external cause; Y99.8 Other external cause status
CPT/HCPCS: 72040; 72125; 96372; 99284; J1885; J2360